=== PATIENT | male | born 1985 | race Caucasian/White ===

== ENCOUNTER 2020-07-03 17:20 | Outpatient (CLI) | payer MEDICAID | END 2020-07-03 17:21 | disposition home or self-care (01) | LOC: COV 17:20 | PROVIDERS: ATTEND Family Medicine | DX: R05 Cough (principal); R53.83 Other fatigue; R07.0 Pain in throat; R19.7 Diarrhea, unspecified; R09.81 Nasal congestion; J34.89 Other specified disorders of nose and nasal sinuses; Z20.828 Contact with and (suspected) exposure to other viral communicable diseases ==

== ENCOUNTER 2020-09-12 08:00 | Outpatient (CLI) | payer MEDICAID, OTHER ==
--- NOTE | 2020-09-12 18:40 | XRAY Report ---
PROCEDURE: Wrist 4 View RT INDICATIONS: PAIN IN RIGHT WRIST TECHNIQUE: 3 views of the wrist were acquired. COMPARISON: None FINDINGS: Bones: No fractures or dislocations. No suspicious bony lesions. Scaphoid view: No fracture Soft tissues: No suspicious soft tissue calcifications. IMPRESSION: No fracture of the right wrist. Reviewed by: Erick Fajardo on 09/12/2020 6:38 PM [facility] Approved by: Erick Fajardo on 09/12/2020 6:38 PM [facility] Station ID: [id number]
== END 2020-09-12 23:59 | disposition home or self-care (01) ==
LOC: DI.S 08:00
PROVIDERS: ATTEND Physician Assistant Medical
DX: M25.531 Pain in right wrist (principal)